=== PATIENT | female | born 1935 | race Caucasian/White ===

== ENCOUNTER 2018-04-06 07:48 | Day surgery (SDC) | payer MEDICARE ==
[~2018-04-06 07:48] MED LIST: LIDOCAINE 1% MDV 20ML VIAL SQ; MIDAZOLAM INJ 2 MG/2 ML VIAL (J2250) As Ordered; fentaNYL 100 MCG/2 ML INJECTION (J3010) As Ordered
[2018-04-06] MEDS: LR 1,000 ML IV ×2 (08:00)
[2018-04-06] MEDS: LIDOCAINE 3.5 % 1ML OPHTH TOPICAL GEL OU ×2 (08:54)
[2018-04-06] MEDS: POVIDONE-IODINE 5% OPHTH PREP SOL 30ML As Ordered ×2 (10:00)
[2018-04-06] MEDS: ERYTHROMYCIN OPHTH OINT As Ordered ×2 (10:15)
[2018-04-06] MEDS: LIDOCAINE 2% W/EPIN INJ 20ML **PRES FREE As Ordered ×2 (10:15)
== END 2018-04-06 11:00 | disposition home or self-care (01) ==
LOC: M SDC 07:48
DX: D23.10 Other benign neoplasm of skin of unspecified eyelid, including canthus (principal); I10 Essential (primary) hypertension; I48.91 Unspecified atrial fibrillation; M12.9 Arthropathy, unspecified; H40.9 Unspecified glaucoma; Z79.899 Other long term (current) drug therapy; Z79.82 Long term (current) use of aspirin; Z90.710 Acquired absence of both cervix and uterus
CPT/HCPCS: 11440